=== PATIENT | male | born 2000 | race African-American/Black ===

== ENCOUNTER 2018-06-21 22:25 | Emergency (ER) | payer MEDICAID, SELFPAY | END 2018-06-21 22:56 | disposition home or self-care (01) | LOC: NAV ERS 22:25 | DX: J45.909 Unspecified asthma, uncomplicated (principal) | CPT/HCPCS: 99281 ==

== ENCOUNTER 2018-07-13 16:32 | Emergency (ER) | payer SELFPAY ==
[2018-07-13] MEDS ORDERED: Lidocaine 1% (PF) 30 ML VIAL ONE (16:54)
[2018-07-13] MEDS ORDERED: Triple Antibiotic Oint 1 GM Packet ONE (17:16)
== END 2018-07-13 17:25 | disposition home or self-care (01) ==
LOC: NAV ERS 16:32
DX: S61.216A Laceration without foreign body of right little finger without damage to nail, initial encounter (principal); F17.210 Nicotine dependence, cigarettes, uncomplicated; J45.909 Unspecified asthma, uncomplicated; W26.0XXA Contact with knife, initial encounter
CPT/HCPCS: 12001; J2001

== ENCOUNTER → 2018-10-26 | Emergency (ER) | payer SELFPAY ==
[~2018-10-26] MED LIST: Albuterol Sulfate 2.5 mg/3 ml Neb ONE; predniSONE 20 MG TAB ONE
--- NOTE | 2018-10-26 20:56 | RAD ---
Chest 2 views HISTORY: Cough. FINDINGS: No comparison. Cardiac silhouette and pulmonary vasculature are unremarkable. Mediastinum i s midline. No confluent airspace consolidation, pneumothorax, or pleural fluid are apparent. IMPRESSION: No active cardiopulmonary abnormalities are demonstrated.
== END ==
LOC: NAV ERS 20:09
DX: J45.901 Unspecified asthma with (acute) exacerbation (principal); F17.210 Nicotine dependence, cigarettes, uncomplicated
CPT/HCPCS: 71046; J7512; J7611

== ENCOUNTER 2020-05-21 10:44 | Emergency (ER) | payer SELFPAY ==
--- NOTE | 2020-05-21 11:36 | RAD ---
XR Hand Rt 3 View STANDARD: 05/21/2020 11:12 AM CLINICAL INDICATION: History of flight and right hand pain COMPARISON: Prior radiograph of the right hand dated December 21, 2007 FINDINGS: Bones: No acute osseous abnormality. Joints: There is stable widening of the scapholunate interval to 3.6 mm. The remaining joint spaces a ppear within normal limits. Soft Tissue: Soft tissues are normal appearing. IMPRESSION: No acute osseous abnormality..
== END 2020-05-21 11:48 | disposition home or self-care (01) ==
LOC: NAV ERS 10:44
DX: S63.91XA Sprain of unspecified part of right wrist and hand, initial encounter (principal); F17.210 Nicotine dependence, cigarettes, uncomplicated; J45.909 Unspecified asthma, uncomplicated; W50.0XXA Accidental hit or strike by another person, initial encounter

== ENCOUNTER 2020-08-21 16:59 | Emergency (ER) | payer SELFPAY ==
[2020-08-21] MEDS ORDERED: Ibuprofen 800 MG TAB ONE (18:28)
== END 2020-08-21 18:32 | disposition home or self-care (01) ==
LOC: NAV ERS 16:59
DX: S62.304A Unspecified fracture of fourth metacarpal bone, right hand, initial encounter for closed fracture (principal); J45.909 Unspecified asthma, uncomplicated; F17.210 Nicotine dependence, cigarettes, uncomplicated; Y04.0XXA Assault by unarmed brawl or fight, initial encounter
CPT/HCPCS: 29125

== ENCOUNTER 2020-10-31 03:20 | Emergency (ER) | payer OTHER, SELFPAY ==
[2020-10-31] MEDS ORDERED: Lidocaine 1% (PF) 30 ML VIAL ONE (03:46)
[2020-10-31] MEDS ORDERED: Boostrix 0.5 ML (Tdap) VIAL ONE (04:03)
[2020-10-31] MEDS ORDERED: Bacitracin 1 PK ONE (04:03)
== END 2020-10-31 04:36 | disposition home or self-care (01) ==
LOC: NAV ERS 03:20
DX: S61.214A Laceration without foreign body of right ring finger without damage to nail, initial encounter (principal); Z23 Encounter for immunization; J45.909 Unspecified asthma, uncomplicated; W54.0XXA Bitten by dog, initial encounter
CPT/HCPCS: 12001; 90471; 90715; J2001